=== PATIENT | female | born 1965 | race Caucasian/White ===

== ENCOUNTER 2017-08-02 17:02 | Emergency (ER) | payer BC ==
[2017-08-02 17:48] LABS: #Basophils 0.1 thou/uL (0.0-0.2); #Eosinphils 0.1 thou/uL (0.0-0.7); #Lymphocytes 4.5 thou/uL (1.20-3.40); #Monocytes 0.7 thou/uL (0.11-0.59); #Neutrophils 8.8 thou/uL (1.40-6.50); %Basophils 0.8 % (0.0-1.0); %Lymphocytes 31.7 % (21.0-51.0); %Monocytes 5.1 % (0.0-10.0); Hematocrit 40.3 % (36.0-47.0); Mean Platelet Volume 7.2 fL (7.4-10.4); Red Blood Cell (RBC) Count 4.32 mill/uL (4.20-5.40); White Blood Cell (WBC) Count 14.2 thou/uL (4.8-10.8)
[2017-08-02 17:55] LABS: PTT 28.3 SEC (22.9-36.1)
[2017-08-02 17:56] LABS: Prothrombin Time 12.7 SEC (12.0-14.7)
[2017-08-02 18:07] LABS: Anion Gap 18 mmol/L (10-20); Bilirubin, Total 0.3 mg/dL (0.2-1.2); Calcium 9.5 mg/dL (7.8-10.44); Carbon Dioxide 23 mmol/L (22-29); Chloride 102 mmol/L (98-107); Globulin 3.7 g/dL (2.4-3.5); Protein, Total 7.9 g/dL (6.0-8.3)
[2017-08-02 18:08] LABS: Alkaline Phosphatase 117 U/L (40-150)
[2017-08-02 18:09] LABS: Calc. Creatinine Clearance 0 mL/min (70-130); Estimated GFR-MDRD 61
[2017-08-02 18:10] LABS: BUN (Urea Nitrogen) 13 mg/dL (9.8-20.1)
[2017-08-02 18:11] LABS: ALT (SGPT) 14 U/L (8-55); AST (SGOT) 20 U/L (5-34); Lipase 23 U/L (8-78)
[2017-08-02 18:12] LABS: CK (CPK) 45 U/L (29-168)
[2017-08-02 18:14] LABS: Troponin I Less than 0.010 ng/mL (< 0.028)
[2017-08-02] MEDS ORDERED: Ondansetron HCl/PF 4 MG/2 ML Vial ONE (18:53)
[2017-08-02] MEDS ORDERED: Meclizine HCl 25 MG TAB ONE (18:53)
[2017-08-02 19:08] LABS: Bilirubin Negative (Negative); Blood, Urine Trace (Negative); Glucose, Urine (Dipstick) Negative (Negative); Ketone, Urine Trace mg/dL (Negative); Nitrite Negative (Negative); Protein, Urine (Dipstick) Trace mg/dL (Neg-Trace); Urobilinogen 0.2 mg/dL (0.2-1.0)
[2017-08-02 19:12] LABS: Bacteria/HPF 2+ HPF (None Seen); Hyaline Casts/LPF 4-6 HYALINE CAST LPF (0-3 Hyaline); Squamous Epithelial 21-50 HPF (0-3)
[2017-08-02 19:23] LABS: Yeast-All Forms None Seen HPF (None Seen)
--- NOTE | 2017-08-02 19:40 | RAD ---
PORTABLE AP CHEST X-RAY 08/02/17 HISTORY: Syncope, nausea and vomiting. COMPARISON: 11/30/16 The cardiac silhouette is magnified by projection. The pulmonary vasculature is within normal limits . The lungs remain clear. There has been no interval change from the prior exam. IMPRESSION: No acute cardiopulmonary process. POS: [facility]
--- NOTE | 2017-08-02 19:42 | CT ---
CT HEAD WITHOUT IV CONTRAST: 08/02/17 HISTORY: Altered mental status. FINDINGS: There is no evidence of a hemorrhage, acute infarction, mass effect, or midline shift. Ventricular s ystem is normal in size, shape and position. The visualized paranasal sinuses and mastoid air cells are clear. Calvarial structures are intact. IMPRESSION: No acute intracranial abnormalities demonstrated. POS: [facility]
== END 2017-08-02 19:31 | disposition home or self-care (01) ==
LOC: ERS 17:02
DX: R42 Dizziness and giddiness (principal); I10 Essential (primary) hypertension; E78.5 Hyperlipidemia, unspecified; F32.9 Major depressive disorder, single episode, unspecified; F41.9 Anxiety disorder, unspecified
CPT/HCPCS: 70450; 71010; 80053; 81003; 81015; 82550; 82553; 83690; 83880; 84146; 84443; 84484; 85025; 85379; 85610; 85730; 87077; 87086; 93005; 94760; 96361; 96374; J2405

== ENCOUNTER 2017-08-11 06:11 | Emergency (ER) | payer BC ==
[2017-08-11] MEDS ORDERED: diphenhydrAMINE HCl 50 MG/ML 1 ML VIAL ONE (06:22)
[2017-08-11 06:49] LABS: #Basophils 0.2 thou/uL (0.0-0.2); #Eosinphils 0.2 thou/uL (0.0-0.7); #Lymphocytes 5.4 thou/uL (1.20-3.40); #Neutrophils 11.5 thou/uL (1.40-6.50); %Basophils 0.9 % (0.0-1.0); %Eosinophils 0.9 % (0.0-10.0); %Lymphocytes 29.5 % (21.0-51.0); %Monocytes 5.7 % (0.0-10.0); Hematocrit 38.1 % (36.0-47.0); Red Blood Cell (RBC) Count 4.03 mill/uL (4.20-5.40); White Blood Cell (WBC) Count 18.3 thou/uL (4.8-10.8)
[2017-08-11 07:13] LABS: ALT (SGPT) 15 U/L (8-55); AST (SGOT) 19 U/L (5-34); Alkaline Phosphatase 94 U/L (40-150); Anion Gap 15 mmol/L (10-20); BUN (Urea Nitrogen) 19 mg/dL (9.8-20.1); Bilirubin, Total 0.2 mg/dL (0.2-1.2); Calc. Creatinine Clearance 0 mL/min (70-130); Calcium 8.9 mg/dL (7.8-10.44); Carbon Dioxide 24 mmol/L (22-29); Chloride 104 mmol/L (98-107); Estimated GFR-MDRD 76; Globulin 3.5 g/dL (2.4-3.5); Protein, Total 7.3 g/dL (6.0-8.3)
[2017-08-11 07:27] LABS: Bilirubin Small (Negative); Blood, Urine Trace (Negative); Glucose, Urine (Dipstick) Negative (Negative); Ketone, Urine Trace mg/dL (Negative); Nitrite Negative (Negative); Protein, Urine (Dipstick) Negative (Neg-Trace); Urobilinogen 0.2 mg/dL (0.2-1.0)
[2017-08-11 07:30] LABS: Squamous Epithelial 0-3 HPF (0-3); WBC/HPF 0-3 HPF (0-3)
[2017-08-11 07:31] LABS: Bacteria/HPF Rare-Few HPF (None Seen); Hyaline Casts/LPF NONE SEEN LPF (0-3 Hyaline); RBC/HPF 0-3 HPF (0-3)
--- NOTE | 2017-08-11 07:50 | RAD ---
CHEST 2 VIEWS: Date: 08/11/17 HISTORY: Dyspnea. COMPARISON: 11/30/16. FINDINGS: Cardiac silhouette and pulmonary vasculature are unremarkable. Mediastinum is midline. Lobular lucen cy over the right upper mediastinum is stable and could be related to mediastinal structures or the medial aspect of the right lung apex. No lobar consolidation, pneumothorax, or pleural fluid are ernst arent. IMPRESSION: Lobular lucency, possibly a gaseous cystic structure, over the upper mediastinum. Please consider CT of the chest for better characterization of the abnormality. POS: [facility]
--- NOTE | 2017-08-11 08:50 | CT ---
CT CHEST NONCONTRAST: Date: 08/11/17 HISTORY: Allergic reaction. Dyspnea. Difficulty swallowing. Abnormal chest radiograph. COMPARISON: Earlier chest radiograph from same date. FINDINGS: Azygos fissure is present at the right lung apex, accounting for the abnormality on chest radiograph . No mediastinal mass or parenchymal lung masses are evident. No pleural fluid, pneumothorax, or lob ar consolidation. IMPRESSION: Incidental type findings as detailed above. No mediastinal or parenchymal lung masses are apparent. No abnormalities are demonstrated to explain difficulty swallowing or dyspnea. POS: [facility]
== END 2017-08-11 09:36 | disposition home or self-care (01) ==
LOC: ERS 06:11
DX: R13.10 Dysphagia, unspecified (principal); F41.9 Anxiety disorder, unspecified; E78.5 Hyperlipidemia, unspecified; F32.9 Major depressive disorder, single episode, unspecified; I10 Essential (primary) hypertension
CPT/HCPCS: 71020; 71250; 80053; 81003; 81015; 85025; 93005; 94760; 96361; 96374; J1200

== ENCOUNTER 2017-08-27 20:38 | Emergency (ER) | payer BC ==
[2017-08-27 21:34] LABS: ALT (SGPT) 40 U/L (8-55); AST (SGOT) 30 U/L (5-34); Alkaline Phosphatase 86 U/L (40-150); Anion Gap 9 mmol/L (10-20); BUN (Urea Nitrogen) 20 mg/dL (9.8-20.1); Bilirubin, Total 0.4 mg/dL (0.2-1.2); Calc. Creatinine Clearance 0 mL/min (70-130); Calcium 8.6 mg/dL (7.8-10.44); Carbon Dioxide 31 mmol/L (22-29); Chloride 102 mmol/L (98-107); Estimated GFR-MDRD 74; Globulin 2.9 g/dL (2.4-3.5); Protein, Total 6.3 g/dL (6.0-8.3)
[2017-08-27 21:36] LABS: Hematocrit 34.1 % (36.0-47.0); Neutrophil 59 % (42-75); Reactive Lymphocytes 1 % (0-10); Red Blood Cell (RBC) Count 3.57 mill/uL (4.20-5.40); White Blood Cell (WBC) Count 23.3 thou/uL (4.8-10.8)
--- NOTE | 2017-08-27 21:36 | RAD ---
CHEST TWO VIEWS: History: Dyspnea. Comparison: 08-11-17 FINDINGS: Heart size and mediastinum within normal limits. The lungs are clear of infiltrates an azygous lobe is incidentally noted. IMPRESSION: No active intrathoracic disease. POS: [facility]
[2017-08-27 21:37] LABS: Troponin I Less than 0.010 ng/mL (< 0.028)
[2017-08-27] MEDS ORDERED: ALPRAZolam 0.25 MG TAB ONE (21:47)
[2017-08-27 22:20] LABS: Acetaminophen Less than 6.0 mcg/mL (10.0-30.0); Salicylate Less than 8.0 mg/dL (15.0-30.0)
[2017-08-27 23:16] LABS: Bilirubin Negative (Negative); Blood, Urine Negative (Negative); Glucose, Urine (Dipstick) Negative (Negative); Ketone, Urine Negative (Negative); Nitrite Negative (Negative); Protein, Urine (Dipstick) Negative (Neg-Trace); Urobilinogen 0.2 mg/dL (0.2-1.0)
[2017-08-27 23:24] LABS: Amphetamine Not Detected (NotDetected); Methadone Not Detected (NotDetected); Methamphetamine Not Detected (NotDetected)
[2017-08-28] MEDS ORDERED: Acetaminophen 500 MG TAB ONE (00:33)
== END 2017-08-28 01:37 | disposition home or self-care (01) ==
LOC: ERS 20:38
DX: R45.851 Suicidal ideations (principal); E78.5 Hyperlipidemia, unspecified; I10 Essential (primary) hypertension; F41.9 Anxiety disorder, unspecified; F32.9 Major depressive disorder, single episode, unspecified
CPT/HCPCS: 71020; 80053; 80306; 80307; 81003; 81025; 82553; 84443; 84484; 85025; 93005